=== PATIENT | male | born 1950 | race Caucasian/White ===

== ENCOUNTER → 2016-09-13 | Outpatient (CLI) | payer OTHER, MEDICARE ==
--- NOTE | ~2016-09-13 | PUL ---
PATIENT'S NAME: PANCHO VERDUGO [facility] AGE: 65 Y [address] ROOM: [place] [id number] LOCATION: [facility] ADMIT DATE: 09/13/2016 Pulmonary DISCHARGE DATE: FAMILY PHYSICIAN: Napoleon Hong MD ATTENDING PHYSICIAN: GOPI CARTER NAME OF PROCEDURE: Pulmonary Function Test DATE OF PROCEDURE: September 13, 2016 TECH: Mary, [employer] SERVICE SPECIALIST REASON FOR EXAM: Shortness of breath RESULTS: 1. FVC was 3.87 liters which is 79% of predicted and low, FEV1 was 3.07 liters which is 84% of predicted and normal, and FEV1/FVC was 79% and normal. The flow volume curve did not reveal any significant airflow limitation. After bronchodilator administration FVC increased to 4.1 liters which is a 6% increase and FEV1 increased to 3.38 liters which is a 10% increase. FEV1/FVC was 82%. 2. DLCO was 25.4 with an adjusted DLCO of 24.8 which is 108% of predicted and normal. 3. Total lung capacity was 7.36 liters which is 104% of predicted and normal, and residual volume was 3.44 liters which is 132% of predicted and high. PHYSICIAN INTERPRETATION: The patient has no airflow limitation and no significant bronchodilator response. His diffusion capacity is normal. There is evidence of air trapping on the lung volumes. MD SHEN ZARAGOZA/yue /[id number] dtt: 09/20/16 1743 , GOPI CARTER dtd: 09/20/16 1402
== END | disposition disaster alternative care site (69) ==
LOC: GRTH 08:40
DX: R06.02 Shortness of breath (principal)